=== PATIENT | male | born 1960 | race Caucasian/White ===

== ENCOUNTER → 2023-10-23 09:40 | Outpatient (BNVA) | payer OTHER, SELFPAY | PROVIDERS: Family Provider Electrodiagnostic Medicine; PCP Electrodiagnostic Medicine; Visit Provider Physician Assistant | DX: M75.41 Impingement syndrome of right shoulder (principal); M12.811 Other specific arthropathies, not elsewhere classified, right shoulder | CPT/HCPCS: 73030 ==

== ENCOUNTER 2023-11-14 06:50 | Outpatient (CLI) | payer OTHER, SELFPAY ==
--- NOTE | 2023-11-14 07:15 | MR_ITS ---
WS: [id number] MRI RIGHT SHOULDER HISTORY: shoulder pain COMPARISON: Radiograph 10/23/2023 TECHNIQUE: Multiplanar sequences of the shoulder joint are submitted. Severe AC joint arthritis. Narrowing of the joint space with small erosions involving the distal clav icle and the adjacent acromion. Large osteophyte encroaching upon the supraspinatus. At the level of the osteophyte encroachment there is a high-grade signal within the supraspinatus tendon. Loss of the normal architecture of the tendon. No significant subacromial impingement. There is a small amount o f fluid in the subacromial and subdeltoid bursa. No os acromion. Biceps tendon is not identified in t he bicipital groove. Biceps tendon is dislocated or completely torn and extends lateral to the subsca pularis tendon. Severe atrophy of the supraspinatus muscle. There is mild atrophy of the subscapularis muscle. Infras pinatus muscle is normal. There is markedly abnormal signal throughout the distal supraspinatus tendo n beginning at the level of the AC joint osteophyte encroachment. Loss of the normal architecture. Th is tendon appears to be torn and completely retracted to the medial humeral head. Subscapularis tendo n is not identified distally. Tendon appears to be torn and completely retracted just proximal to the glenoid. There is increased T2 signal extending along the infraspinatus tendon. Within insertion sit e tear. Partial insertion site tear of the infraspinatus. No tendon retraction. Surface irregularity involving the labrum. Partial tear involving the posterior labrum. Moderate glenohumeral joint narrowing. IMPRESSION: 1. Severe AC joint arthritis with large osteophyte encroachment of the myotendinous insertion of the supraspinatus. 2. Abnormal signal involving the distal supraspinatus tendon consistent with a complete tear. There is a large fluid gap with tendon retracted to the medial humeral head. 3. Severe atrophy of the supraspinatus muscle and mild atrophy of the subscapularis muscle. 4. Complete tear and retraction of the subscapularis tendon. Large fluid gap in the tendon tear. 5. Insertion site tear of the infraspinatus with interstitial extension. 6. Torn dislocated subscapularis tendon. Tendon is dislocated lateral to the subscapularis tendon. 7. Partial tear posterior labrum.
--- NOTE | 2023-11-14 10:58 | MR_ITS ---
WS: [id number] MRI BRAIN WITHOUT CONTRAST HISTORY: NONTRAMATIC SUBARACHNOID HEMORRHAGE COMPARISON: None available. TECHNIQUE: Diffusion imaging, multiplanar T1, T2 and FLAIR imaging obtained. No evidence for acute infarct or hemorrhage. Escobar-white matter differentiation is normal. No residual subarachnoid blood is identified. There is very mild volume loss and mild small vessel ischemic disease. No prior infarct. No hippocamp al atrophy. Ventricles and extra-axial spaces are normal. No inferior displacement of cerebellar tonsils. The sella turcica and pituitary gland are unremarkabl e. Dural venous sinuses and hoh of Peguero demonstrate no abnormality on this unenhanced studies. Paranasal sinuses: Small bilateral mucous retention cysts in the maxillary sinuses. Mastoid air cells: Normal. Calvarium and scalp: Intact. IMPRESSION: 1. No acute hemorrhage or infarct. 2. No residual subarachnoid blood products are identified. No prior imaging studies for comparison. 3. Mild volume loss and mild small vessel ischemic disease is chronic.
== END 2023-11-14 06:51 | disposition home or self-care (01) ==
LOC: RAD 06:51
PROVIDERS: Family Provider Electrodiagnostic Medicine; PCP Electrodiagnostic Medicine; Visit Provider Physician Assistant
DX: I60.9 Nontraumatic subarachnoid hemorrhage, unspecified (principal); J34.1 Cyst and mucocele of nose and nasal sinus; M25.511 Pain in right shoulder; M25.711 Osteophyte, right shoulder; M75.121 Complete rotator cuff tear or rupture of right shoulder, not specified as traumatic; S43.491A Other sprain of right shoulder joint, initial encounter; X58.XXXA Exposure to other specified factors, initial encounter; Y93.9 Activity, unspecified; Y92.9 Unspecified place or not applicable; Y99.9 Unspecified external cause status
CPT/HCPCS: 70551; 73221

== ENCOUNTER 2024-05-28 08:06 | Day surgery (SDC) | payer OTHER, SELFPAY ==
[2024-05-28] VITALS (11 sets, daily range): BP systolic 121–182; BP diastolic 75–103; PULSE 64–83; RESP 14–18; TEMP 36.2–36.6; O2SAT 98–100; BMI 26.5
--- NOTE | 2024-05-28 08:14 | ECG_ITS ---
[facility] Test Date: 2024-05-28 Pat Name: Scott Keene Department: Room: Gender: Male Wrapper Operator: : 1960 Requested By: Emily Ireland Order Number: [id number] Michelle MD: Elvia Rossi M.D. Measurements Intervals [place] Rate: 76 P: 10 CT: 109 QRS: 56 QRSD: 86 T: 40 QT: 390 QTc: 440 Interpretive Statements SINUS RHYTHM WITH SHORT CT INTERVAL No previous ECG available for comparison Electronically Signed On 05-29-2024 0:21:58 CDT by Elvia Rossi M.D. [id number]
[2024-05-28 09:01] LABS: Basophils % 0.6 %; Eosinophils # 0.2 10^3/uL (0.0-0.8); Eosinophils % 3.2 %; Hematocrit 43.9 % (37-53); Lymphocytes # 1.3 10^3/uL (0.8-4.8); Lymphocytes % 20.3 %; Mean Corpuscular HGB Conc 33.3 g/dL (30-55); Mean Corpuscular Hemoglobin 30.6 pg (27-33); Mean Platelet Volume 10.4 fL (7.4-10.4); Monocytes # 0.5 10^3/uL (0.2-0.9); Monocytes % 8.2 %; Neutrophils # 4.24 10^3/uL (1.8-7.7); Neutrophils % 67.2 %; Nucleated Red Blood Cells % 0 %; Platelet Count 308 10^3/cmm (157-399); Red Blood Count 4.77 10^6/uL (3.85-5.65); Red Cell Distribution Width 12.8 % (12.1-15.1); White Blood Count 6.31 10^3/uL (3.29-11.43)
[2024-05-28] MEDS: sodium chloride 0.9% 1,000 ML 30 ML IV (09:06)
[2024-05-28] MEDS: acetaminophen 1,000 MG/100 ML PIGGYBACK 400 MG IV (09:06)
[2024-05-28] MEDS: ketorolac 30 mg/mL INJ IVP ×2 (09:07→09:20)
[2024-05-28 09:27] LABS: Blood Urea Nitrogen 12 mg/dL (8-23); Calcium 8.9 mg/dL (8.5-10.5); Carbon Dioxide 26 mmol/L (22-29); Chloride 101 mmol/L (98-107); Creatinine Clr Calc Pharmacy 121.2681; Glomerular Filtration Rate 114.6 mL/min (90-130); Glucose 128 mg/dL (65-115); Osmolality Calculated 287 mOsm/kg (285-295); Sodium 138 mmol/L (136-145)
--- NOTE | 2024-05-28 09:31 | P.ANESASSM_ITS ---
Pre-Anesthetic Assessment Height/Weight: Height 5 ft 10 in Weight 185 lb Temp Pulse Resp BP Pulse Ox O2 Del Method 97.1 F L 78 14 182/103 99 Room Air 05/28/24 08:29 05/28/24 08:29 05/28/24 08:29 05/28/24 08:29 05/28/24 08:29 05/28/24 08:33 Operation Date: 05/28/24 09:40 Proposed Procedures p Shoulder Arthroscopy and diagnostic(Right) - Ravin [place], DO s AC Joint Resection(Right) - Ravin Suly, DO s Subacromial Decompression(Right) - Ravin Suly, DO s Labral Debridement(Right) - Ravin Suly, DO s Rotator Cuff Repair vs. debridement(Right) - Ravin Suly, DO s Bicep Tenotomy vs. tenodesis(Right) - Ravin [place], DO Last intake: Intake Last Liquid Date 05/27/24 Last Liquid Time 23:30 Last Solid Date 05/27/24 Last Solid Time 17:30 Social Patient recovering alcoholic, sober for 6 months Exam alert, oriented x 3, clear to auscultation bilaterally and regular rate & rhythm Airway Submandibular: within normal limits Cervical ROM: within normal limits Mallampati: Class II Dentition: full Anesthetic Plan ASA status: 2 Anesthesia: General Other: No prior issues with anesthesia NPO since midnight Patient is a recovering alcoholic, sober for 6 months. Currently taking naltrexone but has been holding that for the last 2 weeks Labs reviewed today and acceptable for surgery EKG normal sinus rhythm Patient denies any cardiac or pulmonary issues Plan for interscalene nerve block with general anesthesia Medications/Allergies Home Medications Medication Instructions Recorded Confirmed Last Taken Type atorvastatin 80 mg tablet 80 mg PO DAILY 10/23/23 05/27/24 05/25/24 History azelastine 205.5 mcg (0.15 %) 1 spray intranasal BID 10/23/23 05/28/24 05/25/24 History nasal spray celecoxib 50 mg capsule (Celebrex) 50 mg PO BID 03/11/24 05/27/24 05/25/24 History lisinopril 20 mg tablet 20 mg PO DAILY 03/11/24 05/27/24 05/25/24 History naltrexone 50 mg tablet 50 mg PO DAILY 04/25/24 05/27/24 05/20/24 History Allergies Allergy/AdvReac Type Severity Reaction Status Date / Time No Known Allergies Allergy Verified 05/27/24 10:58 Current Medications Generic Name Dose Route Start Last Admin Trade Name Serg PRN Reason Stop Dose Admin Sodium Chloride 1,000 mls @ 30 mls/hr 05/28/24 08:15 05/28/24 09:06 Sodium Chloride 0.9% IV 05/29/24 08:14 30 mls/hr .Q24H JASON Administration PFSH Anesthesia Social History Smoking and tobacco/nicotine status: former use of tobacco/nicotine Alcohol intake: former Marital status: Data Anesthesia 05/28/24 08:50 05/28/24 08:50 Short CBC 05/28/24 Range/Units 08:50 WBC 6.31 (3.29-11.43) 10^3/uL Hgb 14.60 (11.27-16.99) g/dL Hct 43.9 (37-53) % MCV 92.0 (82-101) fl Plt Count 308 (157-399) 10^3/cmm Neut % (Auto) 67.2 % Neut # (Auto) 4.24 (1.8-7.7) 10^3/uL BMP 05/28/24 08:50 Sodium 138 Potassium 4.0 Chloride 101 Carbon Dioxide 26 BUN 12 Creatinine 0.7 Glucose 128 H Calcium 8.9 Cardiac Studies: 2 No Data to Display
--- NOTE | 2024-05-28 10:00 | ANES.PROC ---
Anesthesia Procedures Procedure/Date: 05/28/24 Nerve Block ^: Nerve Block 1: Main Anesthesia: other Time Out Performed: Yes Consent: from patient Nerve block location: interscalene Anesthesia monitors applied: pulse oximetry, EKG and BP cuff Nerve block position: semi sitting Anesthetic Used: ropivicaine 0.5% Amount of anesthesia used (mL): 30 Ultrasound used to: recognize landmarks Nerve Stimulator Used?: Yes Interscalene/Femoral BLK: 4 stimuplex 21 g needle used for position and inplane approach Injection: neg aspiration of heme Patient Tolerated Procedure: well Complications: none Additional Comments: Decadron 4 mg added to block
--- NOTE | 2024-05-28 10:09 | SUR.PREOP ---
10:00 RIGHT INTERSCALENE NERVE BLOCK PERFORMED. PT TOLERATED WELL.
--- NOTE | 2024-05-28 10:18 | W.PM.OPSFHP ---
Same Day Surgery H&P Indication for Procedure/HPI DATE OF PROCEDURE: May 28, 2024 CHIEF COMPLAINT/INDICATIONFOR SURGICAL PROCEDURE: Right shoulder AC joint arthritis, rotator cuff tear, glenoid labral tear, biceps long head tendinitis, rotator cuff subacromial impingement PREOP DIAGNOSIS: Right shoulder AC joint arthritis, rotator cuff tear, glenoid labral tear, PLANNED PROCEDURE: Operation Date: 05/28/24 09:40 Proposed Procedures p Shoulder Arthroscopy and diagnostic(Right) - Ravin Tubbs DO s AC Joint Resection(Right) - Ravin [place] DO s Subacromial Decompression(Right) - Ravin Suly, DO s Labral Debridement(Right) - Ravin [place], DO s Rotator Cuff Repair vs. debridement(Right) - Ravin Tubbs DO s Bicep Tenotomy vs. tenodesis(Right) - Ravin Tubbs DO Medications/Allergies* Home Medications Medication Instructions Recorded Confirmed Type atorvastatin 80 mg tablet 80 mg PO DAILY 10/23/23 05/27/24 History azelastine 205.5 mcg (0.15 %) 1 spray intranasal BID 10/23/23 05/28/24 History nasal spray celecoxib 50 mg capsule (Celebrex) 50 mg PO BID 03/11/24 05/27/24 History lisinopril 20 mg tablet 20 mg PO DAILY 03/11/24 05/27/24 History naltrexone 50 mg tablet 50 mg PO DAILY 04/25/24 05/27/24 History Allergies/Adverse Reactions Allergy/AdvReac Type Severity Reaction Status Date / Time No Known Allergies Allergy Verified 05/27/24 10:58 Current Medications: Generic Name Dose Route Start Last Admin Trade Name Freq PRN Reason Stop Dose Admin Sodium Chloride 1,000 mls @ 30 mls/hr 05/28/24 08:15 05/28/24 09:06 Sodium Chloride 0.9% IV 05/29/24 08:14 30 mls/hr .Q24H JASON Administration Pertinent History/Comorbid Conditions* Social History Smoking and tobacco/nicotine status: former use of tobacco/nicotine Alcohol intake: former Marital status: Pertinent Exam Findings alert, oriented x 3, operative site marked and procedure specific exam findings Please refer to detailed orthopedic examination on 04/25/2024 listed below: Right Shoulder exam: Bowser's-Negative Spurlings: Negative ROM: active 0-180 with pain on end range of motion Palpable crepitus on shoulder range of motion most pronounced directly over the AC joint TTP-ac joint, tenderness to palpation over the bicipital groove, anterior shoulder, lateral aspect of the shoulder as well as posterior shoulder. 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 Positive crossover arm Neer's test with tenderness over AC joint Recommendations Surgery/Procedure today Other Plans: Plan to proceed to the OR today for right shoulder diagnostic and surgical arthroscopy with AC joint resection, subacromial decompression, labral debridement, rotator cuff debridement vs repair, possible biceps tenotomy versus tenodesis, possible subacromial balloon spacer. Patient understands the ins and outs procedure the risk benefits complication alternatives surgery and through shared decision making patient elects proceed with surgical intervention all questions answered at this time. Coding Level of Care Code Acute Code for Kena Hunter
[2024-05-28] MEDS: ceFAZolin 2,000 MG in sodium chloride 0.9% (plus) 50 ML 100 MG IV (10:25)
[2024-05-28] MEDS: EPINEPHrine 1 mg/mL INJ 2 MG XX (11:26)
--- NOTE | 2024-05-28 13:27 | P.BOP_ITS ---
Date of Procedure: [05/28/2024] Surgeon: Ravin Tubbs DO Laboratory Technology Teacher(s): Les Tubbs PA-C Procedure(s) performed: Right shoulder diagnostic and surgical arthroscopy with large rotator cuff repair of supraspinatus tendon (large) Right shoulder diagnostic and surgical arthroscopy with biceps tenodesis Right shoulder diagnostic and surgical arthroscopy with subscapularis tendon repair Right shoulder diagnostic and surgical arthroscopy with labral debridement Right shoulder diagnostic and surgical arthroscopy with AC joint resection (distal clavicle excision) Right shoulder diagnostic and surgical arthroscopy with subacromial decompression (bursectomy and acromioplasty) Right shoulder diagnostic and surgical arthroscopy with glenohumeral joint chondroplasty Findings of the procedure(s): Patient was found to have unstable bicep tendon anchor as well as bicep tendinitis and inflammation and subtle subluxation of this secondary to subscapularis tendon repair underwent a bicep tenodesis incorporated in with the subscapularis tendon repair. Did have glenohumeral benjamín int arthritis roughly grade 2 throughout but focal little areas of grade 3 on the glenoid. This underwent chondroplasty. Labral was debrided. Patient had severe AC joint arthritis and subacromial impingement underwent decompression and AC joint resection without issues or complications. He then subsequently was found to have a large supraspinatus rotator cuff tendon tear that was retracted to the medial face of the humeral head. At this point underwent large rotator cuff repair to the supraspinatus tendon without issues or complications patient will be placed into an UltraSling and be nonweightbearing and no active range of motion or passive range of motion of the right shoulder. Patient taken PACU stable condition Estimated blood loss: 20 mL Specimen(s) removed: None Post-operative diagnosis: Right shoulder subscapularis tendon tear, large supraspinatus rotator cuff tendon tear, subacromial impingement, AC joint arthritis, labral tearing, biceps tendinitis/SLAP tear, glenohumeral joint chondromalacia
--- NOTE | 2024-05-28 13:32 | P.OP_ITS ---
Operative Report Date of procedure: May 28, 2024 Surgeon: Ravin Tubbs DO Bacteriologist Fishery: Les Tubbs PA-C: PA was necessary for assistance in this case with shoulder positioning to execute the procedure, assistance with instrumentation, as well as implant fixation when necessary, assist with wound closure and dressing application. Procedure: Preoperative diagnosis: Right shoulder AC joint arthritis, rotator cuff tear, glenoid labral tear, biceps long head tendinitis, rotator cuff subacromial impingement Post-op diagnosis:? Right shoulder subscapularis tendon tear, large supraspinatus rotator cuff tendon tear, subacromial impingement, AC joint arthritis, labral tearing, biceps tendinitis/SLAP tear, glenohumeral joint chondromalacia Procedure done: Right shoulder diagnostic and surgical arthroscopy with large rotator cuff repair of supraspinatus tendon (large) Right shoulder diagnostic and surgical arthroscopy with biceps tenodesis Right shoulder diagnostic and surgical arthroscopy with subscapularis tendon repair Right shoulder diagnostic and surgical arthroscopy with labral debridement Right shoulder diagnostic and surgical arthroscopy with AC joint resection (distal clavicle excision) Right shoulder diagnostic and surgical arthroscopy with subacromial decompression (bursectomy and acromioplasty) Right shoulder diagnostic and surgical arthroscopy with glenohumeral joint chondroplasty Surgeon: Ravin Tubbs DO Estimated blood loss: 20 mL IV fluids: See anesthesia record Implants: Arthrex 3.9 BC loop and tack biceps tenodesis implant system Arthrex double row speed bridge 4.75/5.5 swivel locks x 19.1 mm Arthrex 5.5 mm bio composite swivel lock anchor self punching Complications: None Condition: stable Disposition: same day Brief History: Patient been seen and worked up in the outpatient setting for Right?shoulder?pain.? Pt had an MRI which showed findings below.? Patient's failed conservative treatment and has weakness.? We talked about treatment options far as nonoperative and operative intervention. He has failed conservative treatment he has weakness but he does have fairly good range of motion with had multiple appeals with his insurance and he is finally received approval his main complaint is crepitus as well as pain and weakness he does on MRI have findings with severe AC joint arthritis as well as supraspinatus tendon tear that is complete and retracted the medial face of the humeral head as well as a subscapularis tendon tear and does appear to have biceps tendon injury as well. See the MRI below for specific findings. We talked about risk benefits complication alternatives surgical nonsurgical treatment options.? Understanding risk of surgery pt agrees to proceed with surgical intervention.? All questions have been answered at this time.? Patient elects proceed with surgery for right shoulder diagnostic and surgical arthroscopy with AC joint resection, subacromial decompression, labral debridement, rotator cuff debridement vs repair, possible biceps tenotomy versus tenodesis, possible subacromial balloon spacer. IMPRESSION: 1. Severe AC joint arthritis with large osteophyte encroachment of the myotendinous insertion of the supraspinatus. 2. Abnormal signal involving the distal supraspinatus tendon consistent with a complete tear. There is a large fluid gap with tendon retracted to the medial humeral head. 3. Severe atrophy of the supraspinatus muscle and mild atrophy of the subscapularis muscle. 4. Complete tear and retraction of the subscapularis tendon. Large fluid gap in the tendon tear. 5. Insertion site tear of the infraspinatus with interstitial extension. 6. Torn dislocated subscapularis tendon. Tendon is dislocated lateral to the subscapularis tendon. 7. Partial tear posterior labrum. Procedure: Patient seen evaluated in the preoperative holding area.? Consent reviewed and signed with patient.? Once again reviewed patient's MRI results as well as? planned surgical intervention.? Correct extremity marked.? Patient seen evaluated by anesthesia department received regional anesthesia.? Once ready for surgery was taken back to the operative suite.? Patient then subsequently underwent anesthesia per the anesthesia department was transported onto the OR table.? Patient was then placed into a lateral decubitus position with a beanbag and was appropriately secured to the bed.? All bony prominences well-padded.? Patient then had the Right upper extremity was then prepped and draped in standard orthopedic fashion.? Patient received appropriate preoperative antibiotics.? Final timeout performed. The Right upper extremity was then held in hanging from traction utilizing sterile technique.? Next started with standard diagnostic and surgical arthroscopy with posterior portal position introduced arthroscope into the glenohumeral joint.? Visualized the glenohumeral joint I then introduced a spinal needle within the rotator cuff interval to confirm appropriate anterior portal placement.? Once this was confirmed I then made my small incision and then introduced my arthroscopic shaver into the glenohumeral joint.? After flushing the joint fluid, was clearly evident patient had biceps tendon tearing as well as Superior labral tear. Patient had appreciable unstable biceps anchor most pronounced in the superior labrum. Given there appears to be healthy intra-articular tendon plan was for an intra-articular biceps tenodesis at the superior portion as it enters the intertubercular groove. Thermal wand introduced into the rotator interval. I then release of the rotator interval to have appropriate visualization and the ability to perform biceps tenodesis. At this point I established a purple passport cannula which was introduced. Next I performed an Arthrex loop and tack biceps tenodesis. Passer was then made around the tendon luggage tag stitch around and then thru the tendon in standard Arthrex technique fashion, I then utilized a thermal wand to release the biceps tendon at the anchor to perform with tenotomy. I then loaded with suture onto an Arthrex 4.75 swivel lock suture anchor. Prior to placing punch I then inspected the subscapularis tendon with possibility of incorporating this repair with my bicep tenodesis utilizing just 1 anchor. At this point in time it was evident patient did have an upper border tear of the subscapularis tendon. As result I planned for a subscapularis tendon repair. I utilized a thermal wand and once again opened up the rotator interval a little further to have better access of the subscapularis tendon I utilized my blunt probe to free up the adhesions on the anterior and posterior aspects of the subscapularis tendon to make sure I was just utilizing suture around the subscapularis tendon. At this point in time I then loaded and Arthrex scorpion with a fiber link suture tape this was then subsequently passed through the subscapularis tendon twice and had excellent fixation and control. This was then loaded onto the 4.75 swivel lock with the bicep tenodesis. A punch was then placed in appropriate position at the entry point into the upper border of the subscapularis insertion at the superior border of the intertubercular groove. Punch was then introduced to the appropriate depth. The sutures loaded on the swivel lock was then advanced held under appropriate tension and shoulder lock anchor was then advanced and had excellent fixation. Excess suture was then cut biceps tenodesis was complete as well as subscapularis tendon was repaired. I then utilized a thermal wand to seal the edges of the superior labrum. ?Next there was significant labral tearing at biceps anchor and circumferential.? ? I then subsequently utilized a a arthroscopic shaver and thermal wand to perform a labral debridement.? This point time I then visualized the glenohumeral joint.? The glenohumeral joint was found to have grade 2?3 chondromalacia throughout.? Axillary pouch was free of loose bodies from viewing the posterior portal.? Next a visualized the rotator cuff superiorly was found to have a large tear of the supraspinatus tendon.? I utilized a spinal needle to prasanth this location.? ?This completed my work within the glenohumeral joint all fluid was suctioned free of the joint.? ?Next I reintroduced the arthroscope posteriorly.? And went to the subacromial space.? I established my lateral working portal at the site of which my spinal needle was marking of the rotator cuff tear.? Thermal wand was then introduced laterally and then I subsequently performed extensive bursectomy of the subacromial space.? Patient had a large anterior bone spur.? At this point time I proceeded with my AC joint resection thermal wand was used and track to the anterior edge of the acromion and then tracked all the way to the AC joint.? Once identified the AC joint this was very arthritic in nature.? Thermal wand was placed anteriorly to establish appropriate plane for AC joint resection.? Once appropriate margins and anterior inferior and anterior capsule was released I then introduced arthroscopic shaver and a bur and performed AC joint resection of both the acromion to cope plane at the AC joint and a distal clavicle resection was then performed totaling 1 cm in size and was confirmed.? This completed my AC joint resection and I then introduced the arthroscopic shaver laterally while continuing to view posteriorly.? I then performed an acromioplasty to complete my subacromial decompression prior to fixing the rotator cuff tear.? Next the arthroscopic shaver was then used previous spinal needle spot that is marked the large hole in the rotator cuff this was consistent with a large full- thickness tear retracted the medial face of the glenoid. At this point in time decision was made that this would be amendable for a double row speed bridge repair. Prior to this I utilize thermal wand as well as shaver to break up any adhesions and allow for appropriate mobilization excursion of the supraspinatus tendon tear that did incorporate just into the anterior border of the infraspinatus. Once I satisfied with this I then utilized a tissue grasper to identify excellent tissue excursion of the rotator cuff and identify the appropriate direction to bring the rotator cuff over the footprint for repair. Next I switched to an arthroscopic bur and debrided gently the rotator cuff footprint to healthy bleeding bone I also utilized a ring curette and a shaver to debride off any adhesions or tissue so that way I was directly onto bleeding bone. Once this was then performed I then placed an arthroscopic blue passport cannula over the lateral portal. Once this was then performed I then utilized a spinal needle for an accessory portal to place the medial row anchors. Spinal needle was placed and had satisfactory man's angle directly onto the medial row sites. Small stab incision was made needle withdrawn and I utilized a blunt probe and I then subsequently punched and placed 2 medial row Arthrex 4.75 swivel lock anchors with suture tape. I did keep 1 additional FiberWire that was sliding to add for a total of 6 sutures that were going to pass through the rotator cuff. At this point in time I then subsequently grasped each individual suture and then passed this from anterior to posterior fashion and 6 sequential suture pass fashion these were all brought out of the anterior portal and docked after each wound was passed. Once this was then completed I was satisfied with my purchase and tissue excursion I then subsequently grabbed suture 1, 3, and 5 these were loaded onto a 5.5 bio composite swivel lock anchor. These were reza arianna for the anterior and lateral row anchor. These were subsequently loaded I subsequently marked with thermal wand and my location this was subsequently punched.? I then subsequently advanced a 5.5 bio composite swivel lock under a tension-free repair. This was subsequently advanced had excellent fixation and the extra suture was subsequently removed. Next I then subsequently grabbed suture 2, 4, and 6 loaded this onto a 5.5 mm Arthrex bio composite swivel lock. This subsequently was loaded kept under appropriate tension for tension Rifater all excess suture slack was subsequently removed I then subsequently utilized a punch and then attempted to advance about composite swivel lock this did not take as the eyelid had disengaged I subsequently had to remove the swivel lock and then once again confirmed my already punch site which had appropriate bone this was reloaded onto a 5.5 mm Arthrex bio composite swivel lock this was loaded kept under appropriate tension for a tension-free repair all excess suture slack was subsequently taken out this was then impacted into appropriate posterior and lateral row anchor in appropriate position and was advanced with excellent fixation and all excess suture was removed with arthroscopic suture cutter. The tendon quality was good and as result I did not see any need for any augmentation. I subsequently evaluated the rotator cuff repair.? Repair was found to be satisfactory?shoulder?was taken through range of motion and the repair moved as a unit with no evidence of loss of fixation. ?I then switched the arthroscope to the lateral portal to confirm this tension- free repair.? I took the?shoulder?through range of motion and the rotator cuff repair was stable and moved as a unit. ?Next I then introduced the arthroscopic shaver posteriorly to complete my subacromial decompression appropriate coplaning all the way up to the lateral edge of the acromion.? This completed the surgery.? All fluid was suctioned from the?shoulder.? All instruments were removed.? The lateral incision was then closed with nylon stitches.? As well as the portal sites closed with portal nylon stitches.? Xeroform 4 x 4's ABD and tape was then applied to the Right?shoulder?and was placed into a?shoulder?abduction pillow sling for rotator cuff repair.? Patient was then awakened from anesthesia and then taken back to PACU in stable condition.? Patient tolerated procedure without any issues. Disposition: Patient taken back in stable condition recovering well.? Dressings on in place clean dry and intact.? Will be nonweightbearing to the Right upper extremity.? Follow rotator cuff repair protocol.? Patient to follow-up with orthopedics in the office in 2 weeks.? Patient will receive appropriate discharge instruction as well as pain medication postoperatively.? All questions answered.? We will contact the office for any questions or concerns.
--- NOTE | 2024-05-28 15:30 | ANE.PACU2 ---
Inpatient post-anesthesia follow up: Airway intact: Yes Vital signs: Temperature 97.8 F Pulse Rate 74 Respiratory Rate 16 Blood Pressure 158/76 Pulse Oximetry 98 Oxygen Delivery Me thod Room Air Oxygen Flow Rate 8 Fraction of Inspir ed Oxygen Hydration adequate: Yes Nausea and vomiting: No Pain level: 1 Mental status: Baseline
== END 2024-05-28 15:30 | disposition home or self-care (01) ==
PROVIDERS: Anesthesiology; PCP Electrodiagnostic Medicine; Visit Provider Student in an Organized Health Care Education/Training Program
PROC: (CPT 29805; principal; 2024-05-28 09:40)
PROC: 0RSG0ZZ Reposition Right Acromioclavicular Joint, Open Approach (ICD-10-PCS; CPT 29823; 2024-05-28 09:40)
PROC: (CPT 29826; 2024-05-28 09:40)
PROC: (CPT 29823; 2024-05-28 09:40)
PROC: (CPT 29827; 2024-05-28 09:40)
PROC: (CPT 24310; 2024-05-28 09:40)
PROC: (CPT 29827; 2024-05-28 09:40)
DX: S43.431A Superior glenoid labrum lesion of right shoulder, initial encounter (principal); S46.811A Strain of other muscles, fascia and tendons at shoulder and upper arm level, right arm, initial encounter; X58.XXXA Exposure to other specified factors, initial encounter; M75.41 Impingement syndrome of right shoulder; M75.101 Unspecified rotator cuff tear or rupture of right shoulder, not specified as traumatic; M94.211 Chondromalacia, right shoulder; M19.011 Primary osteoarthritis, right shoulder; F10.21 Alcohol dependence, in remission; Z87.891 Personal history of nicotine dependence
CPT/HCPCS: 29823; 29824; 29826; 29827; 29828; 36415; 80048; 85025; 93005; C1713; J0131; J0171; J0330; J0690; J1100; J1885; J2250; J2371; J2405; J2704; J3010; J3490; J7030

== ENCOUNTER 2024-07-28 07:32 | Outpatient (RCR) | payer OTHER, SELFPAY | END 2024-08-07 23:59 | disposition home or self-care (01) | LOC: SPT 07:32 | PROVIDERS: PCP Electrodiagnostic Medicine; Visit Provider Student in an Organized Health Care Education/Training Program | DX: Z98.890 Other specified postprocedural states (principal) | CPT/HCPCS: 97110; 97162 ==

== ENCOUNTER 2024-08-08 06:00 | Outpatient (RCR) | payer OTHER, SELFPAY | END 2024-09-06 23:59 | disposition home or self-care (01) | LOC: SPT 06:00 | PROVIDERS: PCP Electrodiagnostic Medicine; Visit Provider Student in an Organized Health Care Education/Training Program | DX: Z98.890 Other specified postprocedural states (principal) | CPT/HCPCS: 97110 ==

== ENCOUNTER 2024-09-07 06:00 | Outpatient (RCR) | payer OTHER, SELFPAY | END 2024-10-06 23:59 | disposition home or self-care (01) | LOC: SPT 06:00 | PROVIDERS: PCP Electrodiagnostic Medicine; Visit Provider Student in an Organized Health Care Education/Training Program | DX: Z98.890 Other specified postprocedural states (principal) | CPT/HCPCS: 97110 ==